=== PATIENT | male | born 1990 | race Caucasian/White ===

== ENCOUNTER 2017-11-15 00:15 | Emergency (ER) | payer MEDICAID ==
--- NOTE | 2017-11-15 00:31 | C.PDOC ---
History Of Present Illness patient presents with increasing ruq and rlq abdominal pain over the last 2 weeks, but especially over the last 36 hours, Dull, stabbing non radiating pain. No f/c/n/v. tolerating po Time Seen by Provider: 11/15/17 00:31 Chief Complaint (Nursing): Abdominal Pain History Per: Patient History/Exam Limitations: no limitations Onset/Duration Of Symptoms: Days (14) Current Symptoms Are (Timing): Still Present Context: Other Severity: Moderate Pain Scale Rating Of: 4 Location Of Pain/Discomfort: RUQ, RLQ Radiation Of Pain To:: None Quality Of Discomfort: Dull, Cramping, Stabbing Associated Symptoms: denies: Fever, Chills, Nausea, Vomiting Exacerbating Factors: None Alleviating Factors: None Last Bowel Movement: Yesterday Recent travel outside of the [place]: No Additional History Per: Patient Past Medical History Reviewed: Historical Data, Nursing Documentation, Vital Signs Vital Signs: Last Vital Signs Temp 97.8 F 11/15/17 03:31 Pulse 56 L 11/15/17 03:31 Resp 20 11/15/17 03:31 BP 104/64 11/15/17 03:31 Pulse Ox 98 11/15/17 03:42 - [facility] Procedures TETANUS TOXOID ADMINIST (04/04/14) Family History: States: No Known Family Hx - Social History Hx Tobacco Use: Yes Hx Alcohol Use: No Hx Substance Use: No - Immunization History Hx Influenza Vaccination: No Physical Exam - Physical Exam Appears: Non-toxic, No Acute Distress Skin: Warm, Dry Head: Normacephalic Eye(s): bilateral: Normal Inspection Oral Mucosa: Moist Neck: Supple Chest: Symmetrical Cardiovascular: Rhythm Regular Respiratory: No Accessory Muscle Use, No Rhonchi, No Wheezing Gastrointestinal/Abdominal: Soft, Tenderness (ruq and rlq), No Distention, No Guarding, No Rebound Back: Normal Inspection Extremity: Normal ROM Extremity: Bilateral: Atraumatic, Normal Color And Temperature, Normal ROM Pulses: Left Dorsalis Pedis: Normal, Right Dorsalis Pedis: Normal Neurological/Psych: Oriented x3, Normal Speech, Normal Cognition Gait: Steady ED Course And Treatment - Laboratory Results Result Diagrams: 11/15/17 00:43 11/15/17 00:43 O2 Sat by Pulse Oximetry: 98 Disposition Counseled Patient/Family Regarding: Studies Performed, Diagnosis, Need For Followup, Rx Given - Disposition Referrals: [facility] [Outside] [facility] [Outside] Disposition: HOME/ ROUTINE Disposition Time: 00:31 Condition: FAIR Additional Instructions: please return if symptoms recur Prescriptions: Azithromycin [Zithromax Tri-Wai] 500 mg PO DAILY #3 tablet Instructions: Bacterial Pneumonia (DC) Forms: [employer] (Thai) - Clinical Impression Clinical Impression: Abdominal pain, Pneumonia
[2017-11-15 00:46] LABS: BASO # 0.1 K/uL (0.0-0.2); BASO % 1.1 % (0.0-2.0); EOS # 0.5 K/uL (0.0-0.7); EOS % 5.5 % (0.0-4.0); HEMATOCRIT 44.9 % (35.0-51.0); LYMPH # 2.7 K/uL (1.0-4.3); LYMPH % 31.5 % (20.0-40.0); MEAN CELL VOLUME 88.5 fL (80.0-94.0); MEAN CORPUSCULAR HEMOGLOBIN 28.6 pg (27.0-31.0); MEAN CORPUSCULAR HGB CONC 32.3 g/dL (33.0-37.0); MEAN PLATELET VOLUME 8.5 fL (7.2-11.7); MONO # 0.5 K/uL (0.0-0.8); MONO % 6.3 % (0.0-10.0); NRBC % 0.1 % (0.0-2.0); WHITE BLOOD COUNT 8.5 K/uL (4.8-10.8)
[2017-11-15 01:33] LABS: ALB/GLOB RATIO 1.1 (1.0-2.1); ALKALINE PHOSPHATASE 52 U/L (38-126); ALT/SGPT 43 U/L (21-72); AST/SGOT 30 U/L (17-59); BILIRUBIN,TOTAL 0.8 mg/dL (0.2-1.3); BLOOD UREA NITROGEN 11 mg/dL (9-20); CALCIUM 8.1 mg/dl (8.6-10.4); CARBON DIOXIDE 29 mmol/L (22-30); CHLORIDE 103 mmol/L (98-107); GFR AFRICAN-AMERICAN > 60; GLUCOSE,RANDOM 82 mg/dL (75-110); POTASSIUM 4.5 mmol/L (3.6-5.2); SODIUM 136 mmol/L (132-148); TOTAL PROTEIN 7.3 g/dL (6.3-8.3)
[2017-11-15] MEDS ORDERED: Iodixanol 320 MG/ML 100 ML BOTTLE IV ONE (01:49)
--- NOTE | 2017-11-15 03:00 | CT ---
EXAM: CT Abdomen and Pelvis With Intravenous Contrast CLINICAL HISTORY: 26 years old, male; Pain; Abdominal pain; Additional info: Rlq abd pain TECHNIQUE: Axial computed tomography images of the abdomen and pelvis with intravenous contrast. All CT scans at this facility use one or more dose reduction techniques, viz.: automated exposure control; ma/kV adjustment per patient size (including targeted exams where dose is matched to indication; i.e. head); or iterative reconstruction technique. 621 images are submitted. Coronal and sagittal reformatted images were created and reviewed. CONTRAST: 100 mL of [id number] administered intravenously. COMPARISON: No relevant prior studies available. FINDINGS: Lower thorax: Right mid lobe infiltrate suspicious for pneumonia. ABDOMEN: Liver: Unremarkable. No mass. Gallbladder and bile ducts: Hyperdense gallbladder representing vicarious excretion of the contrast versus gallstones. Pancreas: There is lack of intra-abdominal fat. There is possible indistinctness of the pancreas versus volume averaging with adjacent structures.Correlation with pancreatic enzymes is recommended. No ductal dilation. Spleen: Unremarkable. No splenomegaly. Adrenals: Unremarkable. No mass. Kidneys and ureters: Unremarkable. No solid mass. No hydronephrosis. Stomach and bowel: Large amount of stool in the colon. Correlation with patient's clinical history of constipation is recommended. Diverticulosis. No mucosal thickening. Appendix: Suboptimally seen normal caliber appendix. PELVIS: Bladder: Distended bladder filled with contrast. Reproductive: Prostate calcifications. ABDOMEN and PELVIS: Intraperitoneal space: Free pelvic fluid seen on image 156 series 3. No free air. Bones/joints: No acute fracture. No dislocation. Soft tissues: Unremarkable. Vasculature: Unremarkable. No abdominal aortic aneurysm. Lymph nodes: Unremarkable. No enlarged lymph nodes. IMPRESSION: 1. Right mid lobe infiltrate suspicious for pneumonia. Correlation with patient's pulmonary symptoms is recommended. 2. There is lack of intra-abdominal fat. There is possible indistinctness of the pancreas versus volume averaging with adjacent structures.Correlation with pancreatic enzymes is recommended. 3. Free pelvic fluid seen on image 156 series 3.
[2017-11-15] MEDS ORDERED: Piperacillin/Tazobact 3.375 gm 100 ML IVPB STA (03:14)
[2017-11-15] MEDS ORDERED: Piperacillin/Tazobact 3.375 gm 100 ML IVPB ONE (03:40)
[2017-11-15 06:02] VITALS: BP 100/58; PULSE 63; RESP 18; TEMP 97.6; O2SAT 100
== END 2017-11-15 06:09 | disposition home or self-care (01) ==
LOC: C.ER 00:15
DX: R10.11 Right upper quadrant pain (principal); R10.31 Right lower quadrant pain; J18.9 Pneumonia, unspecified organism
CPT/HCPCS: 74177; 80053; 83690; 85025; 85610; 85730; 87040; 96365; 96375; 99285; J1885; J2543; Q9967

== ENCOUNTER 2017-11-21 03:49 | Emergency (ER) | payer MEDICAID ==
--- NOTE | 2017-11-21 04:08 | C.PDOC ---
History Of Present Illness <Verenice Mckeon - Last Filed: 11/21/17 05:59> <Will Woodruff - Last Filed: 11/21/17 07:04> 26 year old male presents to ED with complaints of right sided lower abdominal pain that radiates into his testicle. He states the pain started tonight when he was lifting heavy objects and boxes at work. Patient states he has been having right sided abdominal pain for one week, he was seen in ED last week. Patient states the pain had improved and mild and dull. He has follow up appointment this Thursday 11/22. Denies any fever, vomiting, diarrhea, constipation, dysuria. (Verenice Mckeon) History Per: Patient History/Exam Limitations: no limitations Onset/Duration Of Symptoms: Hrs Current Symptoms Are (Timing): Still Present Location Of Pain/Discomfort: RLQ Radiation Of Pain To:: Other (testicle) Quality Of Discomfort: "Pain" Last Bowel Movement: Today <Verenice Mckeon - Last Filed: 11/21/17 05:59> <Will Woodruff - Last Filed: 11/21/17 07:04> Time Seen by Provider: 11/21/17 03:54 Chief Complaint (Nursing): Abdominal Pain Past Medical History Reviewed: Historical Data, Nursing Documentation, Vital Signs - Medical History PMH: No Chronic Diseases Surgical History: No Surg Hx Family History: States: Unknown Family Hx - Social History Hx Tobacco Use: Yes Hx Alcohol Use: No Hx Substance Use: No - Immunization History Hx Influenza Vaccination: No <Verenice Mckeon - Last Filed: 11/21/17 05:59> Vital Signs: Last Vital Signs Temp 98.9 F 11/21/17 03:58 Pulse 57 L 11/21/17 03:58 Resp 20 11/21/17 03:58 BP 96/56 L 11/21/17 03:58 Pulse Ox 99 11/21/17 06:00 - [facility] Procedures TETANUS TOXOID ADMINIST (04/04/14) Review Of Systems Constitutional: Negative for: Fever Cardiovascular: Negative for: Chest Pain, Palpitations Respiratory: Negative for: Cough, Shortness of Breath Gastrointestinal: Positive for: Abdominal Pain (right side). Negative for: Nausea, Vomiting, Diarrhea Genitourinary: Positive for: Scrotal Pain (right testicle). Negative for: Dysuria, Hematuria, Penile Discharge Skin: Negative for: Rash <Verenice Mckeon Last Filed: 11/21/17 05:59> Physical Exam - Physical Exam Appears: Non-toxic, No Acute Distress Skin: Warm, Dry, No Rash, No Ecchymosis Head: Atraumatic, Normacephalic Eye(s): bilateral: Normal Inspection, PERRL, EOMI Neck: Normal ROM Chest: Symmetrical Cardiovascular: Rhythm Regular, No Murmur Respiratory: Normal Breath Sounds, No Rales, No Rhonchi, No Wheezing Gastrointestinal/Abdominal: Bowel Sounds (active), Soft, Tenderness (mildly tender to RLQ ), No Distention, No Guarding, No Hernia Male Genital: Testicular Tenderness (right testicle tender at epididymis ), No Inguinal Swelling, No Scrotal Swelling, Circumcised, Other (+Prehn sign) Extremity: Bilateral: Atraumatic, Normal Color And Temperature, Normal ROM Neurological/Psych: Oriented x3, Normal Speech <Verenice Mckeon Bernard Last Filed: 11/21/17 05:59> ED Course And Treatment - Laboratory Results Result Diagrams: 11/21/17 04:29 11/21/17 04:29 O2 Sat by Pulse Oximetry: 99 <Verenice Mckeon Bernard Last Filed: 11/21/17 05:59> - Laboratory Results Result Diagrams: 11/21/17 04:29 11/21/17 04:29 - CT Scan/US US Scrotum Other Rad Studies (CT/US): Interpreted By Me, Read By Radiologist CT/US Interpretation: EXAM: US Scrotum. CLINICAL HISTORY: 26 years old, male ; Pain; Scrotum pain; Additional info: Right testicle pain. TECHNIQUE: Real- time ultrasound of the scrotum with color Doppler and image documentation. COMPARISON: No relevant prior studies available. FINDINGS: Right testicle: No mass. No torsion. Left testicle: No mass. No torsion. Epididymides: Tiny right epididymal cyst. Scrotum: Small bilateral hydroceles <Will Woodruff - Last Filed: 11/21/17 07:04> Medical Decision Making <Verenice Mckeon - Last Filed: 11/21/17 05:59> <Will Woodruff - Last Filed: 11/21/17 07:04> Medical Decision Making: Impression: Testicular pain, likely epididymitis Prior records reviewed: Patient last seen 11/15/17 for RLQ abdominal pain. Patient had normal labs, and CT scan shows right mid lobe infiltrate. Patient was treated for pneumonia with Zithromax. Plan: * Urine analysis * Urine culture * Ultrasound * Labs Progress: Case discussed with Dr Woodruff who also examines patient and agrees with plan. 0445 CBC reviewed, no leukocytosis or bands 0455 CMP shows no electrolyte abnormality 0456 Patient has yet to provide urine specimen 0545 UA is negative Based on patient history of sexually active, will treat with Rocephin and Doxycycline 0600 Patient returns from US, pending radiology report. (Verenice Mckeon) CT A/P ordered. with po only. pt treated for std exposure. my suspicion is for epididymitis. however suspicion for internal or other hernia/ case turned over to next attending at change of shift. (Will Woodruff) Disposition Counseled Patient/Family Regarding: Diagnosis, Need For Followup, Rx Given - POA Present On Arrival: None <Verenice Mckeon - Last Filed: 11/21/17 05:59> - Disposition Disposition Time: 07:04 <Will Woodruff - Last Filed: 11/21/17 07:04> - Disposition Referrals: [facility] [Outside] [facility] [Outside] [facility] [Outside] Disposition: HOME/ ROUTINE Condition: STABLE Forms: [facility] (Irish) - Clinical Impression Clinical Impression: Epididymitis
[2017-11-21 04:33] LABS: BASO # 0.1 K/uL (0.0-0.2); BASO % 1.2 % (0.0-2.0); EOS # 0.8 K/uL (0.0-0.7); EOS % 9.7 % (0.0-4.0); HEMATOCRIT 40.8 % (35.0-51.0); LYMPH # 3.3 K/uL (1.0-4.3); LYMPH % 40.6 % (20.0-40.0); MEAN CELL VOLUME 87.5 fL (80.0-94.0); MEAN CORPUSCULAR HEMOGLOBIN 30.3 pg (27.0-31.0); MEAN CORPUSCULAR HGB CONC 34.6 g/dL (33.0-37.0); MEAN PLATELET VOLUME 8.3 fL (7.2-11.7); MONO # 0.5 K/uL (0.0-0.8); MONO % 5.8 % (0.0-10.0); NRBC % 0.1 % (0.0-2.0); RED CELL DISTRIBUTION WIDTH 13.8 % (11.5-14.5); WHITE BLOOD COUNT 8.2 K/uL (4.8-10.8)
[2017-11-21 04:50] LABS: ALB/GLOB RATIO 1.1 (1.0-2.1); ALKALINE PHOSPHATASE 47 U/L (38-126); ALT/SGPT 25 U/L (21-72); AST/SGOT 36 U/L (17-59); BILIRUBIN,TOTAL 0.4 mg/dL (0.2-1.3); BLOOD UREA NITROGEN 11 mg/dL (9-20); CALCIUM 7.8 mg/dl (8.6-10.4); CARBON DIOXIDE 26 mmol/L (22-30); CHLORIDE 102 mmol/L (98-107); GFR AFRICAN-AMERICAN > 60; GLUCOSE,RANDOM 98 mg/dL (75-110); SODIUM 134 mmol/L (132-148); TOTAL PROTEIN 6.9 g/dL (6.3-8.3)
[2017-11-21 05:41] LABS: URINE BILIRUBIN NEGATIVE (NEGATIVE); URINE BLOOD NEGATIVE (NEGATIVE); URINE COLOR Yellow (YELLOW); URINE GLUCOSE (UA) NORMAL (Normal); URINE KETONE NEGATIVE (NEGATIVE); URINE LEUKOCYTE ESTERASE NEG Leu/uL (Negative); URINE PROTEIN NEGATIVE (NEGATIVE); URINE UROBILINOGEN NORMAL mg/dL (0.2-1.0); WBC URINE < 1 /hpf (0-5)
[2017-11-21] MEDS ORDERED: cefTRIAXone (Rocephin) 250 mg Inj IM STA (05:58)
--- NOTE | 2017-11-21 06:06 | US ---
EXAM: US Scrotum CLINICAL HISTORY: 26 years old, male; Pain; Scrotum pain; Additional info: Right testicle pain TECHNIQUE: Real-time ultrasound of the scrotum with color Doppler and image documentation. COMPARISON: No relevant prior studies available. FINDINGS: Right testicle: No mass. No torsion. Left testicle: No mass. No torsion. Epididymides: Tiny right epididymal cyst. Scrotum: Small bilateral hydroceles IMPRESSION: 1. No definite sonographic evidence of testicular torsion. 2. Incidental/non-acute findings are described above.
[2017-11-21] MEDS ORDERED: Iohexol 240 (50 ml) PO STA (06:15)
[2017-11-21] MEDS ORDERED: Iohexol 240 (50 ml) ONE (06:30)
[2017-11-21 07:01] VITALS: RESP 18; O2SAT 100
[2017-11-21] MEDS ORDERED: Iodixanol 320 MG/ML 100 ML BOTTLE IV ONE (08:21)
--- NOTE | 2017-11-21 09:11 | CT ---
PROCEDURE: CT Abdomen and Pelvis with contrast HISTORY: Abdominal pain COMPARISON: 11/15/2017. TECHNIQUE: CT scan of the abdomen and pelvis was performed after intravenous administration of contrast. Oral contrast was administered. Coronal and sagittal reformatted images were obtained. Contrast dose: 100 mL Visipaque Radiation dose: Total exam DLP = 243.41 mGy-cm. This CT exam was performed using one or more of the following dose reduction techniques: Automated exposure control, adjustment of the mA and/or kV according to patient size, and/or use of iterative reconstruction technique. FINDINGS: LOWER THORAX: The lung bases are clear. There is subsegmental atelectasis in the medial segment of the right middle lobe. LIVER: The liver is normal in size and there is homogeneous enhancement. No gross lesion or ductal dilatation. GALLBLADDER AND BILE DUCTS: There are no calcified gallstones. PANCREAS: The pancreas is normal in size and there is homogeneous enhancement. No gross lesion or ductal dilatation. SPLEEN: The spleen is normal in size and there is homogeneous enhancement. ADRENALS: No discrete nodules. KIDNEYS AND URETERS: Both kidneys are normal in size there is homogeneous enhancement. No hydronephrosis. No solid mass. VASCULATURE: No aortic aneurysm. BOWEL: The small bowel loops are normal in caliber. There is large amount of stool in the colon. No evidence of bowel dilatation or obstruction. APPENDIX: The appendix is normal in caliber and there is intraluminal air without surrounding inflammatory changes. PERITONEUM: There is small amount of free fluid in the right lower quadrant anterior to the appendix of uncertain etiology and clinical significance. . No free air. LYMPH NODES: No enlarged lymph nodes. BLADDER: Normal in appearance. REPRODUCTIVE: Unremarkable. BONES: No acute fracture. There are small Schmorl's nodes at T10, T11 and L3. OTHER FINDINGS: None. IMPRESSION: 1. Small amount of free fluid in the right lower quadrant anterior to the appendix is of uncertain etiology and clinical significance. The appendix is normal in caliber with intraluminal air and there are no inflammatory changes in the right lower quadrant. 2. Constipation. No evidence of bowel obstruction.
[2017-11-21 09:52] VITALS: BP 110/68; PULSE 84; TEMP 97.7
== END 2017-11-21 09:52 | disposition home or self-care (01) ==
LOC: C.ER 03:49
DX: N45.1 Epididymitis (principal); Z87.891 Personal history of nicotine dependence
CPT/HCPCS: 74177; 76870; 80053; 81001; 83690; 85025; 87086; 87491; 87591; 96372; 96374; 99285; J0696; J1885; Q9966; Q9967

== ENCOUNTER 2017-11-24 03:02 | Emergency (ER) | payer MEDICAID ==
--- NOTE | 2017-11-24 03:10 | C.PDOC ---
Chief Complaint (Nursing): Male Genitourinary Past Medical History - [facility] Procedures TETANUS TOXOID ADMINIST (04/04/14) Family History: States: Unknown Family Hx - Social History Hx Tobacco Use: Yes Hx Alcohol Use: No Hx Substance Use: No - Immunization History Hx Influenza Vaccination: No Disposition - Disposition
[2017-11-24 03:34] VITALS: RESP 18
[2017-11-24 03:50] LABS: RBC URINE < 1 /hpf (0-3); URINE BILIRUBIN NEGATIVE (NEGATIVE); URINE BLOOD NEGATIVE (NEGATIVE); URINE COLOR Yellow (YELLOW); URINE GLUCOSE (UA) NORMAL (Normal); URINE KETONE NEGATIVE (NEGATIVE); URINE LEUKOCYTE ESTERASE NEG Leu/uL (Negative); URINE PROTEIN NEGATIVE (NEGATIVE); URINE UROBILINOGEN NORMAL mg/dL (0.2-1.0); WBC URINE < 1 /hpf (0-5)
--- NOTE | 2017-11-24 04:06 | C.PDOC ---
History Of Present Illness 26 year old male presents to the ED c/o right testicular pain for the past 5 days that started after heavy lifting. 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 Patient denies dysuria, hematuria, back pain, fever, nausea, vomit, Hx of trauma. Time Seen by Provider: 11/24/17 04:01 Chief Complaint (Nursing): Male Genitourinary History Per: Patient History/Exam Limitations: no limitations Onset/Duration Of Symptoms: Days Current Symptoms Are (Timing): Still Present Quality Of Discomfort: "Pain" Associated Symptoms: denies: Fever, Nausea, Vomiting, Urinary Symptoms Alleviating Factors: None Recent travel outside of the [place]: No Additional History Per: Patient Past Medical History Reviewed: Historical Data, Nursing Documentation, Vital Signs Vital Signs: Last Vital Signs Temp 97.7 F 11/24/17 03:08 Pulse 77 11/24/17 03:08 Resp 18 11/24/17 03:08 BP 106/62 11/24/17 03:08 Pulse Ox 99 11/24/17 04:13 - Medical History PMH: No Chronic Diseases Surgical History: No Surg Hx - [facility] Procedures TETANUS TOXOID ADMINIST (04/04/14) Family History: States: Unknown Family Hx - Social History Hx Tobacco Use: Yes Hx Alcohol Use: No Hx Substance Use: No - Immunization History Hx Tetanus Toxoid Vaccination: No Hx Influenza Vaccination: No Hx Pneumococcal Vaccination: No Review Of Systems Constitutional: Negative for: Fever, Chills Cardiovascular: Negative for: Chest Pain, Palpitations Respiratory: Negative for: Cough, Shortness of Breath Gastrointestinal: Negative for: Nausea, Vomiting, Abdominal Pain Genitourinary: Positive for: Scrotal Pain Skin: Negative for: Rash Neurological: Negative for: Weakness, Numbness Physical Exam - Physical Exam Appears: Non-toxic, No Acute Distress Skin: Normal Color, Warm, Dry Head: Atraumatic, Normacephalic Nose: No Discharge, No Deformity Oral Mucosa: Moist Neck: Normal ROM, Supple Chest: Symmetrical Cardiovascular: Rhythm Regular, No Murmur Respiratory: Normal Breath Sounds, No Rales, No Rhonchi, No Wheezing Gastrointestinal/Abdominal: Soft, No Tenderness Male Genital: Testicular Tenderness (right to palpation), No Testicular Swelling , No Scrotal Swelling, No Other (no testicular redness, shortening ) Extremity: Normal ROM, No Pedal Edema, No Calf Tenderness, No Deformity, No Swelling Neurological/Psych: Oriented x3, Normal Speech, Normal Cognition Gait: Steady ED Course And Treatment O2 Sat by Pulse Oximetry: 99 (On RA) Pulse Ox Interpretation: Normal Medical Decision Making Medical Decision Making: Impression : right testicular pain Plan: * Toradol 30 mg IVP * UA * Testicular US Disposition - Disposition Disposition: HOME/ ROUTINE Disposition Time: 05:40 Condition: STABLE Prescriptions: Naproxen [Naprosyn] 500 mg PO BID PRN #14 tablet PRN Reason: Pain, Moderate (4-7) Instructions: Groin Strain (ED) Forms: [employer] - Smart[employer] Connect (Slovak) - Clinical Impression Clinical Impression: Groin strain - Scribe Statement The provider has reviewed the documentation as recorded by the Scribe Huan Bardales All medical record entries made by the Scribe were at my direction and personally dictated by me. I have reviewed the chart and agree that the record accurately reflects my personal performance of the history, physical exam, medical decision making, and the department course for this patient. I have also personally directed, reviewed, and agree with the discharge instructions and disposition.
--- NOTE | 2017-11-24 05:28 | US ---
EXAM: US Scrotum CLINICAL HISTORY: 26 years old, male; Pain; Scrotum pain; Additional info: Right testicular pain TECHNIQUE: Real-time ultrasound of the scrotum with color Doppler and image documentation. COMPARISON: US - TESTICULAR 2017-11-21 05:36 FINDINGS: Right testicle: No mass. No torsion. Left testicle: No mass. No torsion. Epididymides: Tiny right epididymal cyst. Scrotum: Small hydroceles. IMPRESSION: 1. No definite sonographic evidence of testicular torsion. 2. Incidental/non-acute findings are described above.
[2017-11-24 06:06] VITALS: BP 96/69; PULSE 52; TEMP 97.6; O2SAT 100
== END 2017-11-24 06:00 | disposition home or self-care (01) ==
LOC: C.ER 03:02
DX: S39.011A Strain of muscle, fascia and tendon of abdomen, initial encounter (principal); X50.0XXA Overexertion from strenuous movement or load, initial encounter; Y92.89 Other specified places as the place of occurrence of the external cause; Y99.8 Other external cause status
CPT/HCPCS: 76870; 81001; 96374; 99285; J1885

== ENCOUNTER 2017-11-28 00:57 | Emergency (ER) | payer MEDICAID ==
[2017-11-28 01:34] VITALS: O2SAT 98
[2017-11-28 02:07] LABS: BASO # 0.1 K/uL (0.0-0.2); BASO % 0.8 % (0.0-2.0); EOS # 0.7 K/uL (0.0-0.7); EOS % 8.4 % (0.0-4.0); HEMATOCRIT 39.4 % (35.0-51.0); LYMPH # 2.9 K/uL (1.0-4.3); LYMPH % 32.6 % (20.0-40.0); MEAN CELL VOLUME 88.2 fL (80.0-94.0); MEAN CORPUSCULAR HEMOGLOBIN 30.3 pg (27.0-31.0); MEAN CORPUSCULAR HGB CONC 34.4 g/dL (33.0-37.0); MEAN PLATELET VOLUME 8.2 fL (7.2-11.7); MONO # 0.4 K/uL (0.0-0.8); MONO % 4.9 % (0.0-10.0); RED CELL DISTRIBUTION WIDTH 14.4 % (11.5-14.5); WHITE BLOOD COUNT 8.9 K/uL (4.8-10.8)
[2017-11-28 02:20] LABS: ALB/GLOB RATIO 1.4 (1.0-2.1); ALKALINE PHOSPHATASE 62 U/L (38-126); ALT/SGPT 28 U/L (21-72); AST/SGOT 26 U/L (17-59); BILIRUBIN,TOTAL 0.4 mg/dL (0.2-1.3); BLOOD UREA NITROGEN 11 mg/dL (9-20); CALCIUM 7.8 mg/dl (8.6-10.4); CARBON DIOXIDE 29 mmol/L (22-30); CHLORIDE 101 mmol/L (98-107); GFR AFRICAN-AMERICAN > 60; GLUCOSE,RANDOM 87 mg/dL (75-110); POTASSIUM 4.5 mmol/L (3.6-5.2); SODIUM 134 mmol/L (132-148); TOTAL PROTEIN 6.2 g/dL (6.3-8.3)
--- NOTE | 2017-11-28 03:18 | C.PDOC ---
History Of Present Illness 27 year old male presents to the ER with a complaint of abdominal pain to the right upper and lower areas intermittently for the past 2 weeks. Patient was seen and evaluated in the ER several times within the past 2 weeks and has had Abd CTs and testicular US that were negative but states he still has pain. Patient also reports bloody stools, notes he saw blood after wiping earlier today after "straining" to have a bowel movement. Denies fever, nausea, or vomiting. Time Seen by Provider: 11/28/17 01:18 Chief Complaint (Nursing): Abdominal Pain History Per: Patient History/Exam Limitations: no limitations Onset/Duration Of Symptoms: Days, Intermittent Episodes Current Symptoms Are (Timing): Still Present Location Of Pain/Discomfort: RUQ, RLQ Radiation Of Pain To:: None Associated Symptoms: denies: Fever, Chills, Nausea, Vomiting Exacerbating Factors: None Alleviating Factors: None Recent travel outside of the [place]: No Past Medical History Reviewed: Historical Data, Nursing Documentation, Vital Signs Vital Signs: Last Vital Signs Temp 97.6 F 11/28/17 04:11 Pulse 61 11/28/17 04:11 Resp 16 11/28/17 04:11 BP 106/66 11/28/17 04:11 Pulse Ox 98 11/28/17 04:11 - [facility] Procedures TETANUS TOXOID ADMINIST (04/04/14) Family History: States: Unknown Family Hx - Social History Hx Tobacco Use: Yes Hx Alcohol Use: No Hx Substance Use: No - Immunization History Hx Tetanus Toxoid Vaccination: No Hx Influenza Vaccination: No Hx Pneumococcal Vaccination: No Review Of Systems Constitutional: Negative for: Fever, Chills Gastrointestinal: Positive for: Abdominal Pain, Hematochezia. Negative for: Nausea, Vomiting Physical Exam - Physical Exam Appears: Non-toxic, No Acute Distress Skin: Normal Color, Warm, Dry Head: Atraumatic, Normacephalic Eye(s): bilateral: Normal Inspection Oral Mucosa: Moist Chest: Symmetrical, No Tenderness Cardiovascular: Rhythm Regular Respiratory: Normal Breath Sounds, No Rales, No Rhonchi, No Wheezing Gastrointestinal/Abdominal: Soft, Tenderness (Diffuse), No Guarding, No Rebound Rectal: Other (Refused) Back: No CVA Tenderness Neurological/Psych: Oriented x3, Normal Speech ED Course And Treatment - Laboratory Results Result Diagrams: 11/28/17 02:04 11/28/17 02:04 O2 Sat by Pulse Oximetry: 98 (Room air) Pulse Ox Interpretation: Normal Progress Note: Blood work and urinalysis ordered. Enulose administered. Reviewed previous visits, patient has had reports of constipation abdominal CT. Pt reports no full BM x few days. Pt will follow up with PMD. On reevaluation, patient is sleeping comfortably in the ER in no distress. Will discharge home with Rx and instructions to follow up with PMD. Reassessment Condition: Improved Disposition Counseled Patient/Family Regarding: Diagnosis, Need For Followup, Rx Given - Disposition Disposition: HOME/ ROUTINE Disposition Time: 03:18 Condition: STABLE Additional Instructions: Please follow up with PMD or in clinic Take meds as directed High fiber diet Return to ER if worse Prescriptions: Polyethylene Glycol 3350 [Miralax] 17 gm PO DAILY #1 bot Instructions: Constipation (ED), High Fiber Diet (ED) Forms: [employer] [employer] (Macedonian) - Clinical Impression Clinical Impression: Constipation - PA / [employer] / Resident Statement MD/DO has reviewed & agrees with the documentation as recorded. - Scribe Statement The provider has reviewed the documentation as recorded by the Scribe Jamison Gracia All medical record entries made by the Beatrizibbridget were at my direction and personally dictated by me. I have reviewed the chart and agree that the record accurately reflects my personal performance of the history, physical exam, medical decision making, and the department course for this patient. I have also personally directed, reviewed, and agree with the discharge instructions and disposition.
--- NOTE | 2017-11-28 03:21 | C.PDOC ---
Time Seen by Provider: 11/28/17 01:18 Chief Complaint (Nursing): Abdominal Pain Past Medical History Vital Signs: Last Vital Signs Temp 98 F 11/28/17 01:09 Pulse 100 H 11/28/17 01:09 Resp 20 11/28/17 01:09 BP 114/76 11/28/17 01:09 Pulse Ox 98 11/28/17 01:09 - [facility] Procedures TETANUS TOXOID ADMINIST (04/04/14) Family History: States: Unknown Family Hx - Social History Hx Tobacco Use: Yes Hx Alcohol Use: No Hx Substance Use: No - Immunization History Hx Tetanus Toxoid Vaccination: No Hx Influenza Vaccination: No Hx Pneumococcal Vaccination: No ED Course And Treatment - Laboratory Results Result Diagrams: 11/28/17 02:04 11/28/17 02:04 O2 Sat by Pulse Oximetry: 98 Disposition Counseled Patient/Family Regarding: Diagnosis, Need For Followup, Rx Given - Disposition Disposition: HOME/ ROUTINE Disposition Time: 03:18 Condition: STABLE Additional Instructions: Please follow up with PMD or in clinic Take meds as directed High fiber diet Return to ER if worse Prescriptions: Polyethylene Glycol 3350 [Miralax] 17 gm PO DAILY #1 bot Instructions: Constipation (ED), High Fiber Diet (ED) Forms: [email or web address] (Venezuelan) - Clinical Impression Clinical Impression: Constipation
[2017-11-28 04:12] VITALS: BP 106/66; PULSE 61; RESP 16; TEMP 97.6
== END 2017-11-28 04:13 | disposition home or self-care (01) ==
LOC: C.ER 00:57
DX: K59.00 Constipation, unspecified (principal); Z87.891 Personal history of nicotine dependence

== ENCOUNTER 2017-12-02 04:40 | Emergency (ER) | payer MEDICAID ==
[2017-12-02 05:00] VITALS: BP 110/74; PULSE 87; TEMP 97.7; O2SAT 98
[2017-12-02 05:01] VITALS: RESP 18
--- NOTE | 2017-12-02 05:03 | C.PDOC ---
History Of Present Illness 27 year old male presents to the ED c/o intermittent episodes of abdominal pain associated with constipation for the past month. Patient reports the pain worsens after eating. Patient was seen multiple times in the ED for similar complaints CT abd/pelvis and US abd were done both came back with normal results. Patient denies nausea, fever, chills, vomiting, diarrhea, UTI symptoms , recent travels, sick contacts. History Per: Patient History/Exam Limitations: no limitations Onset/Duration Of Symptoms: Intermittent Episodes Current Symptoms Are (Timing): Still Present Context: Food Location Of Pain/Discomfort: Diffuse Radiation Of Pain To:: None Quality Of Discomfort: "Pain" Associated Symptoms: Constipation Exacerbating Factors: None Alleviating Factors: None Recent travel outside of the [place]: No Additional History Per: Patient Past Medical History Reviewed: Historical Data, Nursing Documentation, Vital Signs Vital Signs: Last Vital Signs Temp 97.7 F 12/02/17 05:00 Pulse 87 12/02/17 05:00 Resp 18 12/02/17 05:00 BP 110/74 12/02/17 05:00 Pulse Ox 98 12/02/17 06:32 - Medical History PMH: No Chronic Diseases Surgical History: No Surg Hx - [facility] Procedures TETANUS TOXOID ADMINIST (04/04/14) Family History: States: Unknown Family Hx - Social History Hx Tobacco Use: Yes Hx Alcohol Use: No Hx Substance Use: No - Immunization History Hx Tetanus Toxoid Vaccination: No Hx Influenza Vaccination: No Hx Pneumococcal Vaccination: No Review Of Systems Constitutional: Negative for: Fever, Chills Cardiovascular: Negative for: Chest Pain, Palpitations Gastrointestinal: Positive for: Abdominal Pain, Constipation. Negative for: Nausea, Vomiting Genitourinary: Negative for: Dysuria, Hematuria Musculoskeletal: Negative for: Back Pain Skin: Negative for: Rash Neurological: Negative for: Weakness, Numbness Physical Exam - Physical Exam Appears: Non-toxic, No Acute Distress Skin: Normal Color, Warm, Dry Head: Atraumatic, Normacephalic Nose: No Discharge Oral Mucosa: Moist Neck: Normal ROM, Supple Chest: Symmetrical Cardiovascular: Rhythm Regular, No Murmur Respiratory: Normal Breath Sounds, No Rales, No Rhonchi, No Wheezing Gastrointestinal/Abdominal: Soft, Tenderness (minimal diffuse), No Guarding, No Rebound Back: No CVA Tenderness Extremity: Normal ROM, No Pedal Edema, No Calf Tenderness, No Deformity, No Swelling Neurological/Psych: Oriented x3, Normal Speech Gait: Steady ED Course And Treatment - Laboratory Results Result Diagrams: 12/02/17 05:13 12/02/17 05:13 O2 Sat by Pulse Oximetry: 98 (On RA) Pulse Ox Interpretation: Normal - Other Rad Obstructive series X-Ray: Interpreted by Me, Viewed By Me (and Dr de dios) Interpretation: (+) fecal impaction Progress Note: Plan: -Blood work. -UA. -Obstructive Series X-Ray. Pt remained comfortable in ED, sleeping on stretcher in no painful distress. Labs and XR results d/w pt and citroma was given to pt to take at home and will continue daily with colace as needed for constipation. Pt understands to make appointment for follow up with PMD or medical clinic and return precautions discussed. Pt understands and dgrees with plan. Disposition Counseled Patient/Family Regarding: Diagnosis, Need For Followup, Rx Given - Disposition Referrals: 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 - Scribe Statement The provider has reviewed the documentation as recorded by the Scribe Huan Bardales All medical record entries made by the Scribe were at my direction and personally dictated by me. I have reviewed the chart and agree that the record accurately reflects my personal performance of the history, physical exam, medical decision making, and the department course for this patient. I have also personally directed, reviewed, and agree with the discharge instructions and disposition.
[2017-12-02 05:16] LABS: BASO # 0.1 K/uL (0.0-0.2); EOS # 0.8 K/uL (0.0-0.7); EOS % 8.1 % (0.0-4.0); HEMOGLOBIN 14.6 g/dL (12.0-18.0); LYMPH # 2.1 K/uL (1.0-4.3); LYMPH % 22.9 % (20.0-40.0); MEAN CELL VOLUME 87.1 fL (80.0-94.0); MEAN CORPUSCULAR HEMOGLOBIN 30.3 pg (27.0-31.0); MEAN CORPUSCULAR HGB CONC 34.8 g/dL (33.0-37.0); MONO # 0.5 K/uL (0.0-0.8); MONO % 5.7 % (0.0-10.0); NEUT # 5.8 K/uL (1.8-7.0); NEUT % 62.3 % (50.0-75.0); RBC 4.82 Mil/uL (4.40-5.90); WHITE BLOOD COUNT 9.3 K/uL (4.8-10.8)
[2017-12-02 05:19] LABS: URINE BILIRUBIN NEGATIVE (NEGATIVE); URINE BLOOD NEGATIVE (NEGATIVE); URINE CLARITY Clear (Clear); URINE COLOR Yellow (YELLOW); URINE GLUCOSE (UA) NORMAL (Normal); URINE LEUKOCYTE ESTERASE NEG Leu/uL (Negative); URINE NITRATE NEGATIVE (NEGATIVE); URINE PROTEIN NEGATIVE (NEGATIVE); URINE UROBILINOGEN NORMAL mg/dL (0.2-1.0)
[2017-12-02] MEDS ORDERED: Bisacodyl 5mg EC Tab PO ONE (05:27)
[2017-12-02] MEDS ORDERED: Alum-Mag Hydrox-Simethicone Susp (30 mL) PO STA (05:27)
[2017-12-02] MEDS ORDERED: Aluminum Hydroxide/Magnesium Hydroxide Susp (30 mL) PO STA (05:29)
[2017-12-02] MEDS ORDERED: Aluminum Hydroxide/Magnesium Hydroxide Susp (30 mL) ONE (05:30)
[2017-12-02] MEDS ORDERED: Magnesium Citrate Oral SOL (300 ml) PO ONE (05:53)
[2017-12-02] MEDS ORDERED: Magnesium Citrate Oral SOL (300 ml) ONE (06:15)
[2017-12-02 06:59] LABS: ALB/GLOB RATIO 1.5 (1.0-2.1); ALBUMIN 4.2 g/dL (3.5-5.0); ALT/SGPT 29 U/L (21-72); AST/SGOT 41 U/L (17-59); BLOOD UREA NITROGEN 16 mg/dL (9-20); CALCIUM 8.3 mg/dl (8.6-10.4); GFR AFRICAN-AMERICAN > 60; GFR NON-AFRICAN AMERICAN > 60; LIPASE 175 U/L (23-300)
--- NOTE | 2017-12-02 08:45 | RAD ---
PROCEDURE: Radiographs of the chest and abdomen (obstructive series) HISTORY: abd pain COMPARISON: No prior. TECHNIQUE: AP radiograph of the chest, with upright and supine radiographs of the abdomen. FINDINGS: CHEST: Lungs: Clear. Cardiovascular: Normal size heart. No pulmonary vascular congestion. Pleura: No pleural fluid. No pneumothorax. Other findings: None. ABDOMEN AND PELVIS: Bowel: Mild to moderate constipation is noted. Otherwise unremarkable bowel gas pattern. No evidence of mechanical obstruction. Free air: None. Bones: Unremarkable. Other findings: None. IMPRESSION: [id number] constipation noted, otherwise unremarkable radiographs of chest and abdomen. No evidence of mechanical bowel obstruction.
== END 2017-12-02 06:34 | disposition home or self-care (01) ==
LOC: C.ER 04:40
DX: K59.00 Constipation, unspecified (principal); R10.9 Unspecified abdominal pain

== ENCOUNTER 2018-05-29 10:37 | Emergency (ER) | payer MEDICAID ==
[2018-05-29 10:43] VITALS: BP 118/73; PULSE 68; RESP 20; TEMP 97.8; O2SAT 99
--- NOTE | 2018-05-29 11:16 | C.PDOC ---
History Of Present Illness 27 y/o male presents to the ER complaining of pain to the right wrist which has been present for the past 2 days. Patient describes the pain as aching in nature and states that pain is worse with movement. 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 Denies having weakness and numbness. Time Seen by Provider: 05/29/18 11:07 Chief Complaint (Nursing): Finger,Hand,&Wrist History Per: Patient History/Exam Limitations: no limitations Onset/Duration Of Symptoms: Days Current Symptoms Are (Timing): Still Present Severity: Moderate Past Medical History Reviewed: Historical Data, Nursing Documentation, Vital Signs Vital Signs: Last Vital Signs Temp 97.8 F 05/29/18 10:40 Pulse 68 05/29/18 10:40 Resp 20 05/29/18 10:40 BP 118/73 05/29/18 10:40 Pulse Ox 99 05/29/18 12:15 - Medical History PMH: No Chronic Diseases Surgical History: No Surg Hx - [facility] Procedures TETANUS TOXOID ADMINIST (04/04/14) Family History: States: No Known Family Hx - Social History Hx Tobacco Use: Yes Hx Alcohol Use: No Hx Substance Use: No - Immunization History Hx Tetanus Toxoid Vaccination: No Hx Influenza Vaccination: No Hx Pneumococcal Vaccination: No Review Of Systems Except As Marked, All Systems Reviewed And Found Negative. Musculoskeletal: Positive for: Hand Pain (wrist pain) Physical Exam - Physical Exam Appears: Non-toxic, No Acute Distress Skin: Normal Color, Warm, Dry, No Ecchymosis Head: Atraumatic, Normacephalic Eye(s): bilateral: Normal Inspection, EOMI Nose: Normal Oral Mucosa: Moist Neck: Supple Chest: Symmetrical Cardiovascular: Rhythm Regular, No Murmur Respiratory: Normal Breath Sounds, No Rales, No Rhonchi, No Wheezing Extremity: Normal ROM (normal ROM but pain with pronation/ supination), Tenderness (mild tenderness to radial aspect of right wrist), Capillary Refill ( <2 seconds), No Deformity, No Swelling Pulses: Left Radial: Normal, Right Radial: Normal Neurological/Psych: Oriented x3, Normal Speech Gait: Steady ED Course And Treatment O2 Sat by Pulse Oximetry: 99 (RA) Pulse Ox Interpretation: Normal Medical Decision Making Medical Decision Making: Impression: wrist pain Plan: * wrist xray * Motrin Progress: Xray viewed by me showing no acute fracture or dislocation Velcro volar splint was applied by RN Patient advised to rest ice, and take NSAID for pain Disposition Counseled Patient/Family Regarding: Diagnosis, Need For Followup, Rx Given - Disposition Referrals: [facility] [Outside] [facility] [Outside] Disposition: HOME/ ROUTINE Disposition Time: 12:13 Condition: GOOD Additional Instructions: Your xray was normal, no fracture. Please apply ice to area 15 minutes three times a day. Take Motrin as needed for pain every 6 hours, with food to not upset stomach. Follow up with orthopedic if pain persists over one week. 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 - Scribe Statement The provider has reviewed the documentation as recorded by the Kina Chavira Provider Attestation All medical record entries made by the Beatrizibe were at my direction and personally dictated by me. I have reviewed the chart and agree that the record accurately reflects my personal performance of the history, physical exam, medical decision making, and the department course for this patient. I have also personally directed, reviewed, and agree with the discharge instructions and disposition.
--- NOTE | 2018-05-29 12:24 | RAD ---
PROCEDURE: Right Wrist Radiographs. HISTORY: pain from work, no direct trauma COMPARISON: None. FINDINGS: BONES: Normal. No fracture. JOINTS: Normal. No dislocation. SOFT TISSUES: Normal. OTHER FINDINGS: None. IMPRESSION: Normal right wrist radiographs.
== END 2018-05-29 12:22 | disposition home or self-care (01) ==
LOC: C.ER 10:37
DX: S63.501A Unspecified sprain of right wrist, initial encounter (principal); X58.XXXA Exposure to other specified factors, initial encounter; Y99.0 Civilian activity done for income or pay

== ENCOUNTER 2018-06-10 23:57 | Emergency (ER) | payer MEDICAID ==
[2018-06-11] MEDS ORDERED: Sodium Chloride 0.9% 1,000 ML IV ONE (00:24)
--- NOTE | 2018-06-11 00:24 | C.PDOC ---
History Of Present Illness Patient presents to the ER with a complaint of a dull, aching, burning, periumbilical pain worsening over the past few days, associated with 1 episode of vomiting. Denies change in bowel habits, fever, or chills. Time Seen by Provider: 06/11/18 00:24 Chief Complaint (Nursing): Abdominal Pain History Per: Patient History/Exam Limitations: no limitations Onset/Duration Of Symptoms: Days Current Symptoms Are (Timing): Still Present Severity: Moderate Pain Scale Rating Of: 4 Location Of Pain/Discomfort: Periumbilical Radiation Of Pain To:: None Quality Of Discomfort: Dull, Aching, Burning Associated Symptoms: Vomiting. denies: Fever, Chills, Diarrhea, Constipation Exacerbating Factors: None Alleviating Factors: None Recent travel outside of the [place]: No Past Medical History Reviewed: Historical Data, Nursing Documentation, Vital Signs Vital Signs: Last Vital Signs Temp 98.3 F 06/11/18 00:02 Pulse 86 06/11/18 00:02 Resp 18 06/11/18 00:02 BP 109/60 06/11/18 00:02 Pulse Ox 96 06/11/18 00:49 - Medical History PMH: No Chronic Diseases - [facility] Procedures TETANUS TOXOID ADMINIST (04/04/14) Family History: States: Unknown Family Hx - Social History Hx Tobacco Use: Yes Hx Alcohol Use: No Hx Substance Use: No - Immunization History Hx Tetanus Toxoid Vaccination: No Hx Influenza Vaccination: No Hx Pneumococcal Vaccination: No Review Of Systems Constitutional: Negative for: Fever, Chills Cardiovascular: Negative for: Chest Pain, Palpitations Respiratory: Negative for: Cough, Shortness of Breath Gastrointestinal: Positive for: Vomiting, Abdominal Pain. Negative for: Diarrhea, Constipation Neurological: Negative for: Weakness, Numbness Physical Exam - Physical Exam Appears: Non-toxic Skin: Warm, Dry Head: Normacephalic Oral Mucosa: Moist Chest: Symmetrical, No Tenderness Cardiovascular: Rhythm Regular Respiratory: No Rales, No Rhonchi, No Wheezing Gastrointestinal/Abdominal: Soft, Tenderness (Mild mid epigastric), No Guarding , No Rebound Neurological/Psych: Oriented x3 ED Course And Treatment - Laboratory Results Result Diagrams: 06/11/18 00:42 06/11/18 00:42 O2 Sat by Pulse Oximetry: 96 (room air) Pulse Ox Interpretation: Normal Progress Note: Blood work and urinalysis ordered. IV fluids administered. Reevaluation Time: 05:05 Reassessment Condition: Improved Disposition Counseled Patient/Family Regarding: Studies Performed, Diagnosis, Need For Followup - Disposition Referrals: [facility] [Outside] [facility] [Outside] Disposition: HOME/ ROUTINE Disposition Time: 00:24 Condition: FAIR Additional Instructions: Please return if symptoms recur Prescriptions: Pantoprazole Sodium [Protonix] 40 mg PO DAILY #15 ect Instructions: Gastritis (DC) Forms: [employer] (Croatian) - Clinical Impression Clinical Impression: Abdominal pain, Gastritis - Scribe Statement The provider has reviewed the documentation as recorded by the Scribe Jamison Gracia All medical record entries made by the Scribe were at my direction and personally dictated by me. I have reviewed the chart and agree that the record accurately reflects my personal performance of the history, physical exam, medical decision making, and the department course for this patient. I have also personally directed, reviewed, and agree with the discharge instructions and disposition.
[2018-06-11 00:47] LABS: BASO # 0.1 K/uL (0.0-0.2); BASO % 0.8 % (0.0-2.0); EOS # 0.5 K/uL (0.0-0.7); EOS % 7.3 % (0.0-4.0); HEMOGLOBIN 13.7 g/dL (12.0-18.0); LYMPH # 2.9 K/uL (1.0-4.3); LYMPH % 38.9 % (20.0-40.0); MEAN CELL VOLUME 87.1 fL (80.0-94.0); MEAN CORPUSCULAR HEMOGLOBIN 29.7 pg (27.0-31.0); MEAN CORPUSCULAR HGB CONC 34.1 g/dL (33.0-37.0); MEAN PLATELET VOLUME 8.3 fL (7.2-11.7); MONO # 0.4 K/uL (0.0-0.8); MONO % 4.8 % (0.0-10.0); NEUT # 3.6 K/uL (1.8-7.0); NEUT % 48.2 % (50.0-75.0); NRBC % 0.1 % (0.0-2.0); RBC 4.61 Mil/uL (4.40-5.90); RED CELL DISTRIBUTION WIDTH 13.2 % (11.5-14.5); WHITE BLOOD COUNT 7.5 K/uL (4.8-10.8)
[2018-06-11 00:57] LABS: ALB/GLOB RATIO 1.6 (1.0-2.1); ALBUMIN 3.9 g/dL (3.5-5.0); ALT/SGPT 29 U/L (21-72); AST/SGOT 18 U/L (17-59); BLOOD UREA NITROGEN 15 mg/dL (9-20); CALCIUM 8.4 mg/dl (8.6-10.4); GFR AFRICAN-AMERICAN > 60; GFR NON-AFRICAN AMERICAN > 60; LIPASE 182 U/L (23-300)
[2018-06-11] MEDS ORDERED: Sodium Chloride 0.9% 1,000 ML ONE (01:02)
[2018-06-11] MEDS ORDERED: Iodixanol 320 MG/ML 100 ML BOTTLE IV ONE (01:18)
[2018-06-11 05:27] VITALS: BP 104/62; PULSE 60; RESP 20; TEMP 97.7; O2SAT 99
--- NOTE | 2018-06-11 10:41 | CT ---
Date of service: 06/11/2018 PROCEDURE: CT Abdomen and Pelvis with contrast HISTORY: mid epigastric pain COMPARISON: 11/21/2017. TECHNIQUE: CT scan of the abdomen and pelvis was performed after administration of intravenous contrast. Oral contrast was not administered. Coronal and sagittal reformatted images were obtained. Contrast dose: 100 mL Visipaque Radiation dose: Total exam DLP = 224.59 mGy-cm. This CT exam was performed using one or more of the following dose reduction techniques: Automated exposure control, adjustment of the mA and/or kV according to patient size, and/or use of iterative reconstruction technique. FINDINGS: LOWER THORAX: The visualized lungs are clear. LIVER: Normal in size with homogeneous enhancement. No mass or ductal dilatation. GALLBLADDER AND BILE DUCTS: The gallbladder is contracted. PANCREAS: Normal in size with homogeneous enhancement. No gross lesion or ductal dilatation. SPLEEN: Normal in size with homogeneous enhancement. ADRENALS: No discrete nodule. KIDNEYS AND URETERS: Normal in size with homogeneous enhancement. No hydronephrosis. No solid mass. VASCULATURE: No aortic aneurysm. BOWEL: There is fluid and ingested material in the stomach. The small bowel loops are normal in caliber. There is fluid in the distal small bowel loops. There is large amount of stool in the colon. No bowel dilatation or wall thickening APPENDIX: The appendix is not distinctly identified due to on opacified cecum and distal small bowel. There is also paucity of intra-abdominal fat. PERITONEUM: No free fluid. No free air. LYMPH NODES: No enlarged lymph nodes. BLADDER: Well distended and grossly normal in appearance. REPRODUCTIVE: Unremarkable. BONES: No acute fracture. Stable since the prior examination. OTHER FINDINGS: None. IMPRESSION: Fluid-filled distal small bowel loops which may represent nonspecific enteritis. No bowel obstruction. Please note the appendix is not distinctly identified partly due to on opacified cecum and lack of intra-abdominal fat. A preliminary report was provided by [employer].
== END 2018-06-11 05:31 | disposition home or self-care (01) ==
LOC: C.ER 23:57 → SUPCPDRO 23:57 → C.ER 06-11 05:31
DX: K29.70 Gastritis, unspecified, without bleeding (principal)
CPT/HCPCS: 74177; 80053; 83690; 85025; 96374; 99284; C9113; J7030; Q9967

== ENCOUNTER 2018-07-26 10:48 | Emergency (ER) | payer SELFPAY ==
[2018-07-26 10:53] VITALS: BMI 19.9
[2018-07-26 10:56] VITALS: BP 99/66; PULSE 73; RESP 18; TEMP 98.3; O2SAT 98
== END 2018-07-26 11:03 | disposition left against medical advice (07) ==
LOC: C.ER 10:48
DX: Z02.89 Encounter for other administrative examinations (principal); R06.02 Shortness of breath